=== PATIENT | female | born 1950 | race Caucasian/White ===

== ENCOUNTER → 2016-08-17 | Outpatient (CLI) | payer BC | LOC: FIMAGING 10:15 | PROVIDERS: ATTEND Family Medicine | DX: Z00.00 Encounter for general adult medical examination without abnormal findings (principal); M81.0 Age-related osteoporosis without current pathological fracture ==

== ENCOUNTER 2016-08-18 06:20 | Observation (INO) | payer BC ==
[2016-08-18] MEDS ORDERED: NS 1,000 ML IV ONE ×3 (06:26→08:05)
--- NOTE | 2016-08-18 06:30 | EDPHY ---
H & P HPI/ROS: HPI CHIEF COMPLAINT: Fall, nose bleed HISTORY OF PRESENT ILLNESS: This patient very pleasant 66-year-old female significant past medical history for coronary artery disease with a stent, takes Plavix and aspirin. She presents emergency room with a nose bleed that has been persistent all night. She states that she drank alcohol last night and had 3 alcoholic beverages at a friend's house she tells me she was not drunk she went home she had a mechanical trip and fall and had face strike against the hardwood floors in her house. No LOC. She immediately had facial pain and a swollen nose and bleeding. She could not get the bleeding to stop most of the night with slow down however it would continue. It is reported per EMS that subsequently after she had a nose bleed she did have a syncopal episode during the evening. currently upon arrival to the emergency room she is hemodynamically stable she has no chest pain or shortness of breath. She does complain of mild facial pain. Her nose is actively bleeding.She denies any other areas of injury specifically denies neck pain, wrist pain, knee pain or chest pain. Past Medical History: Coronary artery disease Past Surgical History: Denies recent surgical history Social History: Occasional alcohol use, denies drugs or tobacco Family History: Noncontributory ROS REVIEW OF SYSTEMS: A comprehensive 10 point review of systems is otherwise negative aside from elements mentioned in the history of present illness. Exam Constitutional triage nursing summary reviewed, vital signs reviewed, awake/ alert. Eyes normal conjunctivae and sclera, EOMI, PERRLA. HENT head/neck/face: Patient does have raccoon eyes on exam, the nasal bridge is swollen and ecchymotic. There is fresh bright red blood in both anterior nares. Midface is stable no crepitus, there is a hematoma with ecchymosis to the left forehead, no midline cervical spine pain. moist mucus membranes, neck supple. Respiratory clear to auscultation bilaterally, normal breath sounds, no respiratory distress, no wheezing. Cardiovascular rate normal, regular rhythm, no murmur, no edema, distal pulses normal. Gastrointestinal soft, non-tender, no rebound, no guarding, normal bowel sounds, no distension, no pulsatile mass. Genitourinary no CVA tenderness. Musculoskeletal no midline vertebral tenderness, full range of motion, no calf swelling, no tenderness of extremities, no meningismus, good pulses, neurovascularly intact. Skin pink, warm, & dry, no rash, skin atraumatic. Neurologic awake, alert and oriented x 3, AAOx3, moves all 4 extremities equally, motor intact, sensory intact, CN II-XII intact, normal cerebellar, normal vision, normal speech. Psychiatric normal mood/affect. Heme/Lymph/Immune no lymphadenopathy. Differential Diagnosis: Includes but is not limited to in a particular order traumatic epistaxis, nasal bone fractures, facial fractures, closed head injury , intracranial bleed, soft tissue injury Medical Decision Making: Plan for this patient she will have an IV established obtain blood work should be gently hydrated with normal saline, she will need an EKG due to syncope, she will have a CT scan head without contrast for trauma CT face without contrast for trauma given that she is on Plavix and aspirin has active nasal bleeding ecchymosis to the face and forehead. Re-evaluation: CT scan of the head without IV contrast The results of the study are negative for acute traumatic injury on CT head. The study was read by Dr. Rivera I viewed the images myself on the PACS system. CT scan of the maxillofacial without IV contrast for traumaThe results of the study are CT max face shows nasal bone fractures, septal deviation to the right and air-fluid levels in the sinuses but no fracture seen of the sinus other than nasal bone fracture The study was read by Dr. Rivera. I viewed the images myself on the PACS system. 0630: Nasal clamp applied. 0641AM: Had a lengthy discussion with the who was there for these events. He does report that she drinks more than she should. He thinks that she had more than 3 drinks. She does usually drinks about a bottle wine per evening sometime she does get intoxicated. There was a pot in the hallway with a plan in it that is on the way to the bedroom she tripped and fell over this. He also reports that she had 2 syncopal episodes after this fall however patient is refusing to come to the hospital. 0642AM: It Is noted at this time upon evaluation blood pressure is 80s/50s. This most likely the cause of her syncope. She appears clinically dehydrated on exam. Due to the hypotension and syncope she will get a fluid bolus 2 L normal saline. Received blood work, EKG, troponin and CT scan head and face. Check alcohol level. 0754AM: After further evaluation the patient is complaining of nausea and lightheadedness. She cannot ambulate. Due to ongoing nausea, lightheadedness unable to ambulate active nose bleed, nasal bone fractures, alcohol intoxication and fall she will be admitted to the hospital for nausea control IV hydration, lightheadedness and generalized weakness. She is agreeable for admission at bedside agrees to. CT scans and blood work reviewed. She is anemic. Her blood pressure is currently 90 systolic after 2 L of fluid. EKG interpretation by me on record in [employer] system. Impressiontime of EKG 7:51 a.m., sinus rhythm rate of 83 no acute ischemic changes. No signs of cardiac arrhythmia. Reason for admission is ongoing nausea, lightheadedness, epistaxis acute alcohol intoxication, dehydration and hypotension now improved after IV fluids blood pressure in the 90s. Safe for admission inpatient setting. 0755AM: Spoke with Dr. Griffin the hospitalist service who agrees to admit the patient. Source: Patient, Family, EMS - Medical/Surgical History Hx Asthma: No Hx Chronic Respiratory Disease: No Hx Diabetes: No Hx Cardiac Disease: Yes Hx Renal Disease: No Hx Cirrhosis: No Hx Alcoholism: No Hx HIV/AIDS: No Hx Splenectomy or Spleen Trauma: No Other PMH: CAD, X2 stents placed - Social History Smoking Status: Former smoker Constitutional: Initial Vital Signs Temperature (C) 36.5 C 08/18/16 06:30 Heart Rate 78 08/18/16 06:30 Respiratory Rate 16 08/18/16 06:30 Blood Pressure 94/58 L 08/18/16 06:30 O2 Sat (%) 99 08/18/16 06:30 O2 Delivery Mode Room Air Allergies/Adverse Reactions: No Known Allergies Allergy (Verified 01/08/15 06:07) Home Medications: Medication Instructions Recorded Aspirin [Aspirin 81mg (*)] 81 mg PO DAILY 01/08/15 Ezetimibe [Zetia 10 MG (*)] 10 mg PO DAILY 01/08/15 Lisinopril [Zestril 5 mg (*)] 5 mg PO DAILY 01/08/15 Metoprolol Succinate Xr [Toprol Xl 25 mg PO DAILY 01/08/15 25 mg (*)] Rosuvastatin Calcium [Crestor 40mg 40 mg PO DAILY 01/08/15 (*)] Clopidogrel Bisulfate [Plavix (*)] 75 mg PO DAILY #30 tab 01/09/15 Repatha Syringe 08/18/16 Medical Decision Making - Data Points Laboratory Results: Laboratory Results 08/18/16 06:35 08/18/16 06:35 08/18/16 08/18/16 08/18/16 06:35 06:35 06:35 WBC 9.86 10^3/uL H 10^3/uL (3.80-9.50) RBC 2.68 10^6/uL L 10^6/uL (4.18-5.33) Hgb 9.3 g/dL L g/dL (12.6-16.3) Hct 27.4 % L % (38.0-47.0) MCV 102.2 fL H fL (81.5-99.8) MCH 34.7 pg H pg (27.9-34.1) MCHC 33.9 g/dL g/dL (32.4-36.7) RDW 13.0 % % (11.5-15.2) Plt Count 171 10^3/uL 10^3/uL (150-400) MPV 9.4 fL fL (8.7-11.7) Neut % (Auto) 83.1 % H % (39.3-74.2) Lymph % (Auto) 10.9 % L % (15.0-45.0) [place] % (Auto) 5.3 % % (4.5-13.0) Eos % (Auto) 0.0 % L % (0.6-7.6) Baso % (Auto) 0.3 % % (0.3-1.7) Nucleat RBC Rel Count 0.0 % % (0.0-0.2) Absolute Neuts (auto) 8.20 10^3/uL H 10^3/uL (1.70-6.50) Absolute Lymphs (auto) 1.07 10^3/uL 10^3/uL (1.00-3.00) Absolute Monos (auto) 0.52 10^3/uL 10^3/uL (0.30-0.80) Absolute Eos (auto) 0.00 10^3/uL L 10^3/uL (0.03-0.40) Absolute Basos (auto) 0.03 10^3/uL 10^3/uL (0.02-0.10) Absolute Nucleated RBC 0.00 10^3/uL 10^3/uL (0-0.01) Immature Gran % 0.4 % % (0.0-1.1) Immature Gran # 0.04 10^3/uL 10^3/uL (0.00-0.10) PT 13.9 SEC SEC (12.0-15.0) INR 1.08 (0.83-1.16) APTT 22.1 SEC L SEC (23.0-38.0) Sodium 143 mEq/L mEq/L (134-144) Potassium 4.3 mEq/L mEq/L (3.5-5.2) Chloride 111 mEq/L H mEq/L (97-110) Carbon Dioxide 16 mEq/l L mEq/l (22-31) Anion Gap 16 mEq/L mEq/L (8-16) BUN 31 mg/dL H mg/dL (7-23) Creatinine 0.9 mg/dL mg/dL (0.6-1.0) Estimated GFR > 60 Glucose 117 mg/dL H mg/dL (70-100) Calcium 8.4 mg/dL L mg/dL (8.5-10.4) Creatine Kinase 107 IU/L IU/L (0-156) CK-MB (CK-2) Fraction 3.13 ng/mL ng/mL (0-3.19) Troponin I 0.021 ng/mL ng/mL (0-0.034) NT-Pro-B Natriuret Pep 329 pg/mL H pg/mL (0-125) Ethyl Alcohol 173 mg/dL H mg/dL (0-10) Medications Given: Discontinued Medications Sodium Chloride (Ns) 1,000 mls @ 0 mls/hr IV ONCE ONE PRN Reason: Wide Open Stop: 08/18/16 06:27 Last Admin: 08/18/16 06:35 Dose: 1,000 mls Sodium Chloride (Ns) 1,000 mls @ 0 mls/hr IV ONCE ONE PRN Reason: Wide Open Stop: 08/18/16 06:33 Last Admin: 08/18/16 06:35 Dose: 1,000 mls Departure - Departure Disposition: Home, Routine, Self-Care Clinical Impression: Epistaxis, Nasal septal deviation, Dehydration Fall Qualifiers: Encounter type: initial encounter Qualified Code(s): W19.XXXA - Unspecified fall, initial encounter Head injury Qualifiers: Encounter type: initial encounter Qualified Code(s): S09.90XA - Unspecified injury of head, initial encounter Facial injury Qualifiers: Encounter type: initial encounter Qualified Code(s): S09.93XA - Unspecified injury of face, initial encounter Nasal bone fracture Qualifiers: Encounter type: initial encounter Fracture type: closed Qualified Code(s): S02.2XXA - Fracture of nasal bones, initial encounter for closed fracture Hypotension Qualifiers: Hypotension type: other hypotension type Qualified Code(s): I95.89 - Other hypotension Condition: Fair Referrals: BEN OCONNELL [Primary Care Provider] - As per Instructions Mary Brady MD [Medical Doctor] - As per Instructions
[2016-08-18 06:50] LABS: % IMMATURE GRANULYOCYTES 0.4 % (0.0-1.1); ABSOLUTE IMMATURE GRANULOCYTES 0.04 10^3/uL (0.00-0.10); ADD DIFF? NO; ADD MORPH? NO; ADD SCAN? NO; ATYPICAL LYMPHOCYTE FLAG 10 (0-99); FRAGMENT RBC FLAG 0 (0-99); HEMATOCRIT 27.4 % (38.0-47.0); HEMOGLOBIN 9.3 g/dL (12.6-16.3); LEFT SHIFT FLG 10 (0-99); LIPEMIA HEMOLYSIS FLAG 90 (0-99); MEAN CELL HEMOGLOBIN 34.7 pg (27.9-34.1); MEAN CELL HEMOGLOBIN CONCENTR. 33.9 g/dL (32.4-36.7); MEAN CELL VOLUME 102.2 fL (81.5-99.8); MEAN PLATELET VOLUME 9.4 fL (8.7-11.7); PLATELET CLUMPS FLAG 0 (0-99); PLATELET COUNT 171 10^3/uL (150-400); RED BLOOD CELL COUNT 2.68 10^6/uL (4.18-5.33)
[2016-08-18 06:59] LABS: APTT 22.1 SEC (23.0-38.0); INR 1.08 (0.83-1.16); PROTIME(PATIENT) 13.9 SEC (12.0-15.0)
[2016-08-18 07:17] LABS: ANION GAP 16 mEq/L (8-16); CALCIUM 8.4 mg/dL (8.5-10.4); CARBON DIOXIDE 16 mEq/l (22-31); CHLORIDE 111 mEq/L (97-110); CREATININE 0.9 mg/dL (0.6-1.0); ETHANOL SERUM 173 mg/dL (0-10); GLOMERULAR FILTRATION RATE > 60; GLUCOSE 117 mg/dL (70-100); POTASSIUM 4.3 mEq/L (3.5-5.2); SODIUM 143 mEq/L (134-144)
[2016-08-18 07:29] LABS: CREATINE KINASE-MB FRACTION 3.13 ng/mL (0-3.19); TROPONIN I 0.021 ng/mL (0-0.034)
[2016-08-18] MEDS ORDERED: ONDANSETRON 4 MG/2 ML VIAL IVP ONE (07:53)
--- NOTE | 2016-08-18 07:53 | CPEKG ---
Heart Rate: 83 RR Interval: 723 P-R Interval: 184 QRSD Interval: 86 QT Interval: 404 QTC Interval: 475 P Ault: 57 QRS Ault: 79 T Wave Ault: 53 EKG Severity - NORMAL ECG - EKG Impression: SINUS RHYTHM Electronically Signed By: Clemente Raymond 18-Aug-2016 08:10:14
--- NOTE | 2016-08-18 10:19 | PDGENHP ---
History and Physical - Chief Complaint nose bleed - History of Present Illness 66y/o female with history of coronary artery disease with stent taking Plavix and aspirin who presents to the ED with persistent epistaxis. She states she went out drinking last with some friends and when she arrived home she tripped and fell over a planter in her house and it woke up her who found her. She states she did not lose consciousness. After 1hr of persistent nose bleeding , she had a syncopal episode for which her was able to catch her before she fell. She refused to go to the ED despite husbands requests. She continued to be weak and had another syncopal episode after which called EMS. She had a prior episode of persistent epistaxis 10 years ago for which she got cautery. On admission to the ED, she was hypotensive, EtoH level was 200. She was given 2L NS and ondansetron for nausea. She denies dizziness, chest pain, SOB, dyspnea , no vomiting, no changes in vision, facial pain, no numbness or tingling. She is not currently in pain however she has not attempted to ambulate yet. History Information - Allergies/Home Medication List Allergies/Adverse Reactions: No Known Allergies Allergy (Verified 01/08/15 06:07) Home Medications: Aspirin [Aspirin 81mg (*)] 81 mg PO DAILY 01/08/15 [Last Taken 08/17/16] Ezetimibe [Zetia 10 MG (*)] 10 mg PO DAILY 01/08/15 [Last Taken 08/17/16] Lisinopril [Zestril 5 mg (*)] 5 mg PO DAILY 01/08/15 [Last Taken 08/17/16] Metoprolol Succinate Xr [Toprol Xl 25 mg (*)] 25 mg PO DAILY 01/08/15 [Last Taken 01/08/15] Rosuvastatin Calcium [Crestor 40mg (*)] 40 mg PO DAILY 01/08/15 [Last Taken 10/28] Cholecalciferol Vit D3 [Vitamin D3 (*)] 1,000 units PO DAILY 08/18/16 [Last Taken Unknown] Repatha Syringe 1 ea SQ Q14D 08/18/16 [Last Taken 08/09/16] I have personally reviewed and updated: family history, medical history, social history, surgical history Past Medical History: [place] with 2 stents -4years ago. HTN- 10years - Past Medical History hyperlipidemia - Surgical History Reports: no pertinent surgical hx - Family History Additional family history: Father of CHF. Mother hx of HTN, hypercholesterol. 2/3 of siblings with hypercholesterl. Son LA at 33 - Social History Smoking Status: Former smoker Alcohol Use: Other (8-10 glasses of wine per week) Review of Systems ROS: 10pt was reviewed & negative except for what was stated in HPI & below Physical Exam Temp Pulse Resp BP Pulse Ox 35.9 C L 88 20 128/79 H 94 08/18/16 08:18 08/18/16 08:52 08/18/16 08:52 08/18/16 08:52 08/18/16 08:52 Constitutional: no apparent distress Eyes: PERRL, other (periorbital ecchymosis bilat) Ears, Nose, Mouth, Throat: moist mucous membranes, hearing normal, ears appear normal, no oral mucosal ulcers, other (deviated septum to the right; no active epistaxis) Cardiovascular: regular rate and rhythym, no murmur, rub, or gallop, No edema Respiratory: no respiratory distress, no rales or rhonchi, clear to auscultation Gastrointestinal: normoactive bowel sounds, soft, non-tender abdomen, no palpable masses, No guarding, No rebound Skin: warm, normal color, no rashes or abrasions, no fluctuance, no induration, No mottled Musculoskeletal: full muscle strength, no muscle tenderness, normal joint ROM, no joint effusions Neurologic: AAOx3, CN II-XII Intact, No facial droop Psychiatric: interacting appropriately Lab Data & Imaging Review 08/18/16 06:35 08/18/16 06:35 WBC 9.86 10^3/uL (3.80-9.50) H 08/18/16 06:35 RBC 2.68 10^6/uL (4.18-5.33) L 08/18/16 06:35 Hgb 9.3 g/dL (12.6-16.3) L 08/18/16 06:35 Hct 27.4 % (38.0-47.0) L 08/18/16 06:35 MCV 102.2 fL (81.5-99.8) H 08/18/16 06:35 MCH 34.7 pg (27.9-34.1) H 08/18/16 06:35 MCHC 33.9 g/dL (32.4-36.7) 08/18/16 06:35 RDW 13.0 % (11.5-15.2) 08/18/16 06:35 Plt Count 171 10^3/uL (150-400) 08/18/16 06:35 MPV 9.4 fL (8.7-11.7) 08/18/16 06:35 Neut % (Auto) 83.1 % (39.3-74.2) H 08/18/16 06:35 Lymph % (Auto) 10.9 % (15.0-45.0) L 08/18/16 06:35 [place] % (Auto) 5.3 % (4.5-13.0) 08/18/16 06:35 Eos % (Auto) 0.0 % (0.6-7.6) L 08/18/16 06:35 Baso % (Auto) 0.3 % (0.3-1.7) 08/18/16 06:35 Nucleat RBC Rel Count 0.0 % (0.0-0.2) 08/18/16 06:35 Absolute Neuts (auto) 8.20 10^3/uL (1.70-6.50) H 08/18/16 06:35 Absolute Lymphs (auto) 1.07 10^3/uL (1.00-3.00) 08/18/16 06:35 Absolute Monos (auto) 0.52 10^3/uL (0.30-0.80) 08/18/16 06:35 Absolute Eos (auto) 0.00 10^3/uL (0.03-0.40) L 08/18/16 06:35 Absolute Basos (auto) 0.03 10^3/uL (0.02-0.10) 08/18/16 06:35 Absolute Nucleated RBC 0.00 10^3/uL (0-0.01) 08/18/16 06:35 Immature Gran % 0.4 % (0.0-1.1) 08/18/16 06:35 Immature Gran # 0.04 10^3/uL (0.00-0.10) 08/18/16 06:35 PT 13.9 SEC (12.0-15.0) 08/18/16 06:35 INR 1.08 (0.83-1.16) 08/18/16 06:35 APTT 22.1 SEC (23.0-38.0) L 08/18/16 06:35 Sodium 143 mEq/L (134-144) 08/18/16 06:35 Potassium 4.3 mEq/L (3.5-5.2) 08/18/16 06:35 Chloride 111 mEq/L (97-110) H 08/18/16 06:35 Carbon Dioxide 16 mEq/l (22-31) L 08/18/16 06:35 Anion Gap 16 mEq/L (8-16) 08/18/16 06:35 BUN 31 mg/dL (7-23) H 08/18/16 06:35 Creatinine 0.9 mg/dL (0.6-1.0) 08/18/16 06:35 Estimated GFR > 60 08/18/16 06:35 Glucose 117 mg/dL (70-100) H 08/18/16 06:35 Calcium 8.4 mg/dL (8.5-10.4) L 08/18/16 06:35 Creatine Kinase 107 IU/L (0-156) 08/18/16 06:35 CK-MB (CK-2) Fraction 3.13 ng/mL (0-3.19) 08/18/16 06:35 Troponin I 0.021 ng/mL (0-0.034) 08/18/16 06:35 NT-Pro-B Natriuret Pep 329 pg/mL (0-125) H 08/18/16 06:35 Ethyl Alcohol 173 mg/dL (0-10) H 08/18/16 06:35 Imaging Review: i visualized and interpreted the facial ct showing displaced nasal bone fracture. final read is pending Visualized and Interpreted EKG results: Yes EKG Interpretation: Positive for: normal sinsus rhythm (83 bpm). Negative for: ST elevation, ST depression Assessment & Plan Assessment: 66 y/o female with hx of coronary artery disease on asa and plavix presenting to ED with syncope and epistaxis # epistaxis with hypotension likely due to dehydration, blood loss, alcohol intoxication -monitor BP and CBC levels #facial bone fractures and nasal septum deviated to right -will discuss the case with financial operations analyst ent #alcoholism -monitor ethyl alcohol level and signs and symptoms of withdrawal -educate patient on benefits of management of alcoholism -follow up with PCP for LFTs and renal function as BUN:Cr elevated #h/o CAD without signs of ACS #macrocytic anemia -discussed etoh cessation -recommend outpt anemia workup
[2016-08-18] MEDS ORDERED: ONDANSETRON 4 MG/2 ML VIAL IVP PRN (10:42)
[2016-08-18 12:08] VITALS: O2SAT 99
[2016-08-18] MEDS ORDERED: ACETAMINOPHEN 500 MG TAB PO SCH (16:00)
[2016-08-18 16:51] VITALS: BP 125/75; PULSE 106; RESP 18; TEMP 98.4
--- NOTE | 2016-08-18 20:05 | GCON ---
[f rep st] CONSULTATION ENT CONSULTATION DATE OF CONSULTATION: 08/18/2016 CHIEF COMPLAINT: Facial trauma. HISTORY OF PRESENT ILLNESS: This is a 66-year-old female, on Plavix and aspirin, who presented to [facility] ED following a mechanical fall onto her face. She was evaluated in the emergency department and admitted to the floor with a difficult/persistent nose bleed that was controlled in the emergency ro om. CT maxillofacial was done. I reviewed both the images and the Radiology read. The CT shows a comminuted nasal fracture and septal fracture. In discussing this with the patient, she states she has. Facial pain and complete nasal obstruction bilaterally. She does not notice any bleeding comi ng from her nose, either anteriorly or posteriorly. She feels like her teeth come together normally , and does not feel like she has any loose teeth. She feels that her hearing is fine. She denies o talgia, otorrhea, malocclusion, vision change, hearing change. ALLERGIES: No known medication allergies. HOME MEDICATIONS: Reviewed. PAST MEDICAL HISTORY: [place] with 2 stents, hypertension, hyperlipidemia. FAMILY HISTORY: Noncontributory. SOCIAL HISTORY: Social drinker, 8-10 glasses of wine per week. Former smoker. REVIEW OF SYSTEMS: Negative for what was included in the HPI. PHYSICAL EXAM: VITAL SIGNS: Blood pressure is 136/76, heart rate 92, respiratory rate 16, O2 satur ation 99% on room air, temperature is 36.8 degrees Celsius. GENERAL: Alert, interactive, no acute distress. GENERAL HEAD AND FACE: Normocephalic with bilateral periorbital ecchymoses, and somewhat flattened nasal dorsum and tip with moderate amount of soft tissue swelling. Laceration over the d orsum appears closed. No other palpable facial step-offs. Ears: Bilateral pinnae and canals are n ontender, nonerythematous. Tympanic membranes are intact bilaterally with no evidence of effusion o r hemotympanum. Nose: As described above externally. Nasal dorsum is mobile bilaterally and moder ately tender. Nasal cavity is obstructed with old blood on anterior rhinoscopy. The septum does ap pear to be deviated to the right. Oral Cavity: Age-appropriate dentition. Normal occlusion. No e vidence of chipped or loose teeth. Posterior pharynx clear. No blood. NECK: Supple without palpa ble mass or adenopathy. ASSESSMENT AND PLAN: A 66-year-old female with a comminuted and displaced nasal fracture and concom itant septal fracture. It is hard to tell on CT scan whether the septal fracture is new, but I susp ect as she has no history of nasal obstruction, that this is a new injury. Given her history, she w ould be a good candidate for close reduction of nasal and septal fractures. I discussed the risks, benefits, and alternatives to this procedure with her at length, and she stated she understood and w ished to go forward with the procedure. I recommended that we hold off until some swelling comes do wn, and that we can go ahead and plan for operative repair sometime in the coming week. Thank you for this consultation. Please call with questions to my cell phone at [phone]. /[id number]/MODL
--- NOTE | 2016-08-18 20:45 | GDS ---
[f rep st] DISCHARGE SUMMARY DISCHARGE DIAGNOSES: 1. Epistaxis due to facial trauma. 2. Comminuted mildly angulated and displaced nasal bone fracture with septal deviation. 3. Alcohol intoxication. 4. Macrocytic anemia. CONSULTANTS: Dr. Waldemar Thomason, [facility]. HOSPITAL COURSE: Epistaxis: The patient presented to the emergency department with a nosebleed aft er she sustained a fall last night. She is on aspirin and Plavix. In the emergency department she underwent nasal cautery. The patient was placed on observation since initially she was hypotensive and intoxicated with alcohol. The patient received IV fluids and throughout the day feels better and has requested to go home. Janene infante has been seen by Dr. Thomason from ENT who plans to follow her up as an outpatient to consider reduc tion of her nasal fracture. I instructed the patient on the dangers of alcohol abuse and recommende d that she have an outpatient workup for her anemia. PHYSICAL EXAM: VITAL SIGNS: On day of discharge, blood pressure 136/76, pulse of 92, respiratory r ate 16, O2 sat 99% on room air. GENERAL: No acute distress. HEART: S1, S2. LUNGS: Clear. ABDO MEN: Soft. DIAGNOSTICS ON THIS HOSPITAL STAY: A CT of the head and face done 08/18/2016. Refer to report. DISCHARGE MEDICATIONS: Please refer to discharge medication reconciliation in [facility] for details. DISCHARGE INSTRUCTIONS: The patient will be discharged from the hospital where once again she shoul d follow up with Dr. Thomason with Ear Nose and Throat. She should also follow up with her primary ca re provider regarding her anemia. She was instructed to cut back on her alcohol intake. Copy requested to: Dr. Waldemar Milan /[id number]/MODL
[2016-08-19] MEDS ORDERED: CLOPIDOGREL BISULFATE 75 MG TAB PO SCH (09:00)
[2016-08-19] MEDS ORDERED: ASPIRIN 81 MG CHEWABLE TAB PO SCH (09:00)
[2016-08-19] MEDS ORDERED: CHOLECALCIFEROL VIT D3 1,000 UNITS TAB PO SCH (09:00)
== END 2016-08-18 17:26 | disposition home or self-care (01) ==
LOC: EDUNIT# → INTOOBSV 07:52 → F3N 08:46
PROVIDERS: ADMIT Internal Medicine; ATTEND Family Medicine
PROC: 095KXZZ Destruction of Nasal Mucosa and Soft Tissue, External Approach (ICD-10-PCS; principal; 2016-08-18)
PROC: 2Y41X5Z Packing of Nasal Region using Packing Material (ICD-10-PCS; principal; 2016-08-18)
DX: R04.0 Epistaxis (principal); S02.2XXA Fracture of nasal bones, initial encounter for closed fracture; S00.83XA Contusion of other part of head, initial encounter; W01.10XA Fall on same level from slipping, tripping and stumbling with subsequent striking against unspecified object, initial encounter; Y92.009 Unspecified place in unspecified non-institutional (private) residence as the place of occurrence of the external cause; F10.220 Alcohol dependence with intoxication, uncomplicated; Y90.0 Blood alcohol level of less than 20 mg/100 ml; J34.2 Deviated nasal septum; D64.9 Anemia, unspecified; I25.10 Atherosclerotic heart disease of native coronary artery without angina pectoris; E78.5 Hyperlipidemia, unspecified; Z87.891 Personal history of nicotine dependence; Z95.5 Presence of coronary angioplasty implant and graft
CPT/HCPCS: 30901; 70450; 70486; 93005; G0378; 96374; G0480; J2405

== ENCOUNTER → 2018-04-13 | Outpatient (CLI) | payer OTHER | LOC: FIMAGING 14:28 | PROVIDERS: ATTEND Family Medicine | DX: Z12.31 Encounter for screening mammogram for malignant neoplasm of breast (principal) ==